=== PATIENT | female | born 1955 | race Caucasian/White ===

== ENCOUNTER → 2017-06-05 | Outpatient (CLI) | payer BC ==
[~2017-06-05] MED LIST: NO MEDICATIONS; PRILOSEC40 MG PO
--- NOTE | ~2017-06-05 | MY29 ---
[facility] A Service of [facility] RADIOLOGY TEXT RESULTS PATIENT: LEE ANN RAYO LOCATION: [facility] : 57 UNIT #: [id number] AGE: [address]: Dominick Kumari MD SEX: F ORDER DR: [id number] [facility] [address] [place], [place] [address] [id number] O MR#: [id number] Acc #: [id number] NAME: LEE ANN RAYO. : 1955 SEX: F STUDY DATE/TIME: 06/05/2017 12:05 UNIT: [facility] ROOM: STUDY DESCRIPTION: MY ANISA SCREENING W/ CAD BILAT Attending Physician: Dominick Kumari M.D. Referring Physician: Dominick Kumari M.D. Ordering Physician: Dominick Kumari M.D. Primary Care Physician: Dominick Kumari M.D. MEDICAL IMAGING REPORT This report is preliminary unless electronic signature is present EXAM Digital screening mammogram 06/05/2017 HISTORY 62-year-old woman. No risk elevation. Prior left breast biopsy. Annual screen. COMPARISON Mammograms date to 02/05/2006 with most recent 06/18/2012 follow up diagnostic right mammogram 07/17/2012 and 01/09/2013. FINDINGS Digital imaging of each breast was completed utilizing screening protocol. Review includes FDA-approved CAD device. Breast parenchyma is extremely dense bilaterally. This reflects a fibronodular pattern in each breast. Two image-guided biopsy markers project deep inner quadrant left breast. I see no developing mass. There are no interval occurring suspicious microcalcifications and no architectural deformity. IMPRESSION Benign mammogram. Stable dense breast parenchyma bilaterally. Annual screening recommended. Patient's over the age of 40 are entered into a reminder system with target due date for the next mammogram. BIRADS: 2 Benign findings Dictated by... Víctor Ga M.D. THIS IS AN ELECTRONICALLY VERIFIED REPORT [facility] A Service of [facility] RADIOLOGY TEXT RESULTS PATIENT: LEE ANN RAYO LOCATION: [facility] : 57 UNIT #: [id number] AGE: [address]: Dominick Kumari MD SEX: F ORDER DR: Víctor Ga M.D. at 06/05/2017 3:40 PM Carrie TD: 06/05/2017 15:29 JOB #: [id number] MEDICAL IMAGING REPORT Page 1 of 1 COPY
== END | disposition home or self-care (01) ==
LOC: CWCC 11:40
DX: Z12.31 Encounter for screening mammogram for malignant neoplasm of breast (principal); Z98.890 Other specified postprocedural states
CPT/HCPCS: G0202